=== PATIENT | female | born 1985 | race Caucasian/White ===

== ENCOUNTER 2021-02-07 03:42 | Emergency (ER) | payer OTHER, SELFPAY ==
[2021-02-07 03:44] VITALS: BP 106/71; PULSE 85; RESP 20; TEMP 35.5; O2SAT 99; BMI 25.0
--- NOTE | 2021-02-07 03:44 | CT_ITS ---
STUDY: CT BRAIN WITHOUT CONTRAST REASON FOR EXAM: Female, 35 years old patient with altered mental status secondary to intoxication. RADIATION DOSAGE (If Supplied By Facility): CTDIvol = ( 44.99 ) mGy, DLP = ( 829.85 ) mGycm TECHNIQUE: Transaxial CT imaging of the brain was performed without administration of intravenous contrast material. Multiplanar reformations are submitted for interpretation. Individualized dose optimization techniques were used for this CT. COMPARISON: No relevant priors. FINDINGS: Normal soft tissue structures. Normal calvarium. Normal size ventricles and extra-axial spaces for the patient''s age. Normal white matter tracts of the cerebral hemispheres. Normal basal ganglia and thalami. Normal brainstem. Normal cerebellum. There is no intracranial hemorrhage. There are no findings of an acute ischemic infarction. Normal visualized paranasal sinuses. CT/Brain/Head without Contrast IMPRESSION: Normal unenhanced CT scan of the brain. Electronically Signed: Estefania Turk MD at 5:30 EDT , Service support ,
--- NOTE | 2021-02-07 03:45 | EX.ED.DYSGE1 ---
HPI History of Present Illness Chief Complaint: ETOH Intox Narrative Narrative: Patient reports she has been drinking alcohol tonight. Her friend called EMS as she was overly intoxicated. She is unsure how many alcoholic beverages she had. History of PTSD. Denies any nausea vomiting. Denies any acute pain. She is unsure if she had a injury. She does not think so. However she is intoxicated. Denies any illicit drug use. Denies . EMS reported that her right pupil is more dilated than the left which concerned him. It is responsive to light however. PFSH PFSH Allergy/AdvReac Type Severity Reaction Status Date / Time No Known Allergies Allergy Verified 02/07/21 03:48 Social History Smoking Status: Never smoker ROS ROS ED ROS Narrative ROS General: Denies fever, chills, sweats Eyes: Denies visual changes, blurred vision, double vision ENT: Denies ear pain, rhinorrhea, sore throat Cardiovascular: Denies chest pain, palpitations, heart racing Respiratory: Denies dyspnea, cough, sputum, dyspnea on exertion, orthopnea,PND GI: Denies abdominal pain, nausea, vomiting, diarrhea, constipation, melena : Denies dysuria, hematuria, frequency Musculoskeletal: Denies myalgias, arthralgias, neck pain, back pain Skin: Denies rash, abscess, abrasions Neuro: Denies headache, weakness, paresthesia Psych: Denies depression, anxiety Endo: Denies polyuria, polydipsia, polyphagia Heme: Denies easy bruising, easy bleeding, lymphadenopathy Allergy: Denies hives, swelling EXAM Physical Exam Narrative Exam Narrative: Vital signs reviewed General: Well-nourished well-developed Head: Normocephalic atraumatic Eyes: Pupils equal round and reactive to light. Positive pupil anisocoria. Right side 4 mm left side 2 mm. Extraocular movements intact ENT: TMs clear no hemotympanum no trauma Neck: Nontender full range of motion Cardiovascular: Regular rate rhythm no murmurs normal S1-S2 Respiratory: No distress clear to auscultation bilaterally chest nontender Abdomen: Soft nontender nondistended normal bowel sounds no masses Back: Nontender no CVA tenderness Extremities: Nontender active range of motion ?4 extremities no trauma Skin: Normal color no trauma Neuro patient is acutely intoxicated with alcohol. Const Vital Signs: 02/07/21 03:44 02/07/21 04:15 02/07/21 04:51 Temperature 95.9 F L Temperature Source Temporal Pulse Rate 85 93 88 Respiratory Rate 20 H 14 14 Blood Pressure 106/71 101/81 H 106/76 Blood Pressure Mean 82 87 86 Pulse Ox 99 98 100 Oxygen Delivery Method Room Air Room Air Room Air MDM MDM MDM Narrative Medical decision making narrative: Given IV fluids and Zofran. CT head obtained. CT head is negative for acute abnormality. Patient felt better after treatment. Upon sobriety she will be discharged in the morning Radiography Diagnostic Testing: Radiology Impression Brain CT 02/07/21 03:44 IMPRESSION: Normal unenhanced CT scan of the brain. Electronically Signed: Estefania Turk MD at 5:30 EDT , Service support , Discharge Plan Triage Chief Complaint: ETOH Intox ED Provider: Luis Galvin Dx/Rx/DC Orders Clinical Impression: Alcohol intoxication Instructions: ED Alcohol Abuse Primary Care Provider: Jaylen Bone,Out of Referrals: Jaylen Bone,Out of [Primary Care Provider] - Disposition Disposition: Home, self care
[2021-02-07] MEDS: 0.9% Normal Saline 1,000 ML 1000 ML IV (03:52)
[2021-02-07] MEDS: Ondansetron 4 MG/2 ML Vial IV (03:54)
[2021-02-07 04:15] VITALS: BP 101/81; PULSE 93; RESP 14; O2SAT 98
[2021-02-07 04:51] VITALS: BP 106/76; PULSE 88; RESP 14; O2SAT 100
[2021-02-07 06:49] VITALS: BP 103/66; PULSE 82; RESP 16; O2SAT 99
== END 2021-02-07 08:49 | disposition home or self-care (01) ==
PROVIDERS: Emergency Provider Emergency Medicine
DX: F10.129 Alcohol abuse with intoxication, unspecified (principal)
CPT/HCPCS: 70450; 96361; 96374; 99285; A4216; J2405